=== PATIENT | female | born 1945 | race Caucasian/White ===

== ENCOUNTER → 2018-07-13 | Outpatient (REF) | payer MEDICARE ==
[~2018-07-13] VITALS: Ht 165.1 cm; Wt 85.7 kg
[~2018-07-13] MED LIST: ADLT ASA LOW81 MG PO; BIOTIN5000 MC2 PO; CALCIUM + D600 MG PO; FOLIC ACID1 MG PO; GLUCOTROL5 MG PO; JANUMET1 TA1 PO; LANTUS100 UNIT/M SC; MEVACOR20 MG PO; VITAMIN B CO PO; ZESTRIL/PRI10 MG/TAB PO
[2018-07-13 09:28] VITALS: BP 124/58
== END | disposition home or self-care (01) ==
LOC: PO 08:28 → ORM 08:30
PROVIDERS: ATTEND Surgery
DX: Z01.818 Encounter for other preprocedural examination (principal); Z12.11 Encounter for screening for malignant neoplasm of colon; E11.9 Type 2 diabetes mellitus without complications; Z98.890 Other specified postprocedural states

== ENCOUNTER 2018-07-19 07:04 | Day surgery (SDC) | payer MEDICARE ==
[~2018-07-19] VITALS: Ht 165.1 cm; Wt 85.7 kg
[2018-07-19 09:49] VITALS: BP 114/57
== END 2018-07-19 10:10 | disposition home or self-care (01) ==
LOC: ENDO 07:04
PROVIDERS: ATTEND Surgery
PROC: 0DJD8ZZ Inspection of Lower Intestinal Tract, Via Natural or Artificial Opening Endoscopic (ICD-10-PCS; principal; 2018-07-19)
DX: Z12.11 Encounter for screening for malignant neoplasm of colon (principal); K57.30 Diverticulosis of large intestine without perforation or abscess without bleeding; E11.9 Type 2 diabetes mellitus without complications; Z80.0 Family history of malignant neoplasm of digestive organs

== ENCOUNTER → 2018-11-22 | Outpatient (REF) | payer MEDICARE ==
[2018-11-22 08:35] LABS: HEMATOCRIT 37.5 % (37.0-47.0); HEMOGLOBIN 11.9 g/dl (12.0-16.0); IMMATURE GRANULOCYTES 0.4 % (0.0-5.0); MEAN CELL VOLUME 90.1 fL CALC (80.0-100.0); MEAN CORPUSCULAR HGB 28.6 pG CALC (26.0-32.0); MEAN CORPUSCULAR HGB CONC 31.7 g/L CALC (32.0-36.0); NEUT# 2.39 thou/uL (2.00-7.15); RED BLOOD COUNT 4.16 mill/uL (4.20-5.60); RED CELL DISTRI WIDTH 13.1 % (11.5-15.5)
[2018-11-22 09:00] LABS: ALBUMIN 4.4 g/dL (3.2-5.0); ALKALINE PHOSPHATASE 72 u/l (38-126); ANION GAP 13 (6-22 (CALC)); BILIRUBIN, TOTAL 0.6 mg/dL (0.0-1.4); BUN 16 mg/dL (8-23); BUN/CREATININE RATIO 17 (12-20 (CALC)); CARBON DIOXIDE 29 mmol/l (22-30); CHLORIDE 103 mmol/l (95-108); CHOLESTEROL HDL RATIO 4.8 (<4.4 (CALC)); CREATININE 0.9 mg/dL (0.5-1.0); GFR > 60 ML/MIN (>=60 (CALC)); GFR FOR AFR.AMER. > 60 ML/MIN (>=60 (CALC)); HDL CHOLESTEROL 49 mg/dL (>=40); POTASSIUM 4.3 mmol/l (3.5-5.1); SGOT/AST 62 u/l (9-36); SODIUM 141 mmol/l (137-146); TOTAL PROTEIN 7.6 g/dL (6.3-8.2); TOTAL TRIGLYCERIDES 212 mg/dl (30-149); VLDL CHOLESTROL 42 mg/dl (0-48 (CALC))
[2018-11-22 09:09] LABS: CALCULATED LDLCHOLESTEROL 144 mg/dL (62-129 (CALC)); TOTAL CHOLESTEROL 235 mg/dl (0-199)
[2018-11-22 09:27] LABS: TSH, 3RD GENERATION 0.29 uIU/mL (0.47 - 4.68)
== END | disposition home or self-care (01) ==
LOC: LAB 07:54
PROVIDERS: ATTEND Internal Medicine
DX: E11.42 Type 2 diabetes mellitus with diabetic polyneuropathy (principal)

== ENCOUNTER 2023-11-30 09:19 | Emergency (ER) | payer MEDICARE ==
[~2023-11-30] VITALS: Ht 165.1 cm; Wt 79.3 kg
[2023-11-30] VITALS (10 sets, daily range): BP systolic 134–179; BP diastolic 69–99
[2023-11-30] MEDS ORDERED: ASPIRIN 81 MG/TAB PO ONE (09:40)
[2023-11-30] MEDS ORDERED: NITROGLYCERIN 0.4 MG/TAB SL ONE (09:40)
[2023-11-30 09:51] LABS: BASO% 0.3 % (0-3); EOS% 0.7 % (0-8); HEMOGLOBIN 13.3 g/dl (12.0-16.0); IMMATURE GRANULOCYTES 0.2 % (0.0-5.0); LYMPH% 8.9 % (15-41); MEAN CELL VOLUME 89.7 fL CALC (80.0-100.0); MEAN CORPUSCULAR HGB 29.1 pG CALC (26.0-32.0); MEAN CORPUSCULAR HGB CONC 32.4 g/dL CAL (32.0-36.0); MONO% 5.6 % (2-13); NEUT# 7.94 thou/uL (2.00-7.15); NEUT% 84.3 % (42-76); RED BLOOD COUNT 4.57 mill/uL (4.20-5.60); RED CELL DISTRI WIDTH 12.8 % (11.5-15.5)
[2023-11-30 10:21] LABS: ALBUMIN 4.8 g/dL (3.2-5.0); ALKALINE PHOSPHATASE 91 u/l (38-126); ANION GAP 15 (6-22 (CALC)); BILIRUBIN, TOTAL 0.6 mg/dL (0.02-1.3); BUN 17 mg/dL (8-23); BUN/CREATININE RATIO 17 (12-20 (CALC)); CARBON DIOXIDE 25 mmol/l (22-30); CHLORIDE 106 mmol/l (95-108); GFR FOR AFR.AMER. > 60 ML/MIN (>=60 (CALC)); GFR OTHER RACES 54 ML/MIN (>=60 (CALC)); POTASSIUM 4.3 mmol/l (3.5-5.1); SGOT/AST 61 u/l (9-36); SODIUM 141 mmol/l (137-146); TOTAL PROTEIN 8.6 g/dL (6.3-8.2)
[2023-11-30] MEDS ORDERED: AMOX/K CLAV875 M1 PO (10:55)
== END 2023-11-30 15:32 | disposition home or self-care (01) ==
LOC: ED 09:19
PROVIDERS: Family Medicine
DX: R07.9 Chest pain, unspecified (principal); E11.9 Type 2 diabetes mellitus without complications; Z79.4 Long term (current) use of insulin; R06.02 Shortness of breath
CPT/HCPCS: Q9967